=== PATIENT | female | born 1970 | race Caucasian/White ===

== ENCOUNTER 2017-07-09 08:42 | Emergency (ER) | payer OTHER ==
[2017-07-09 08:51] VITALS: TEMP 98; BMI 26.5
--- NOTE | 2017-07-09 09:09 | PDOC ---
History of Present Illness - General Chief Complaint: Headache Stated Complaint: HEADACHES Time Seen by Provider: 07/09/17 09:04 History Source: Patient, Family - History of Present Illness Initial Comments: 07/09/17 09:58 CC: 1 day h/o migraine Patient is a 47 y.o. female with a PMH of gastritis and migraines who presents to our ED this morning c/o a 1 day h/o migraine. Patient states she was @ home yesterday evening when she felt the nausea associated with her previous migraines and took a Fiorecet prophylatically, however it had little to no effect. Patient notes that she takes Fiorcet almost daily whenever she has a migraine and it usually effective. Patient notes one episode of brown (no delmis blood) emesis and some associated nausea, however denies any chest pain, shortness of breath or abdominal pain. PMD: Dr. Salazar Surgical: Cholecystectomy NKDA Social: (-) cigarettes, (-) alcohol, (-) marijuana/cocaine/heroin Past History - Past Medical History Allergies/Adverse Reactions: Allergies Allergy/AdvReac Type Severity Reaction Status Date / Time No Known Allergies Allergy Verified 07/09/17 08:48 Home Medications: Ambulatory Orders Butalb/Acetaminophen/Caffeine [Dzyzaw-Jdbfydgm-Oyhr 50-325-40] 1 each PO Q4H PRN 05/14/16 Omeprazole 20 mg PO DAILY 07/09/17 GI Disorders: Yes (ULCER) - Surgical History Cholecystectomy: Yes - Immunization History Immunization Up to Date: Yes - Suicide/Smoking/Psychosocial Hx Smoking History: Never smoked Hx Alcohol Use: No Drug/Substance Use Hx: No Substance Use Type: None Review of Systems - Review of Systems Constitutional: No: Chills, Fever HEENTM: Yes: Throat Swelling (Headache- throbbing pain in frontal and parietal ( B/L) ). No: Blurred Vision, Double Vision Respiratory: No: Shortness of Breath Cardiac (ROS): No: Chest Pain, Palpitations ABD/GI: Yes: Nausea, Vomiting. No: Constipated, Diarrhea : No: Burning, Dysuria Psychiatric: No: Anxiety, Depression All Other Systems: Reviewed and Negative *Physical Exam - Vital Signs Last Vital Signs Temp Pulse Resp BP Pulse Ox 98.0 F 92 H 18 131/72 98 07/09/17 08:49 07/09/17 08:49 07/09/17 08:49 07/09/17 08:49 07/09/17 08:49 - Physical Exam General Appearance: Yes: Nourished, Appropriately Dressed HEENT: positive: EOMI, HOLLY Neck: positive: Trachea midline, Supple Respiratory/Chest: positive: Lungs Clear, Normal Breath Sounds Cardiovascular: positive: Regular Rhythm, Regular Rate, S1, S2 Gastrointestinal/Abdominal: positive: Soft Musculoskeletal: positive: Other Extremity: positive: Normal Capillary Refill, Normal Inspection, Calf Tenderness (L sided calf-tenderness on repeat exam) ED Treatment Course - LABORATORY CBC & Chemistry Diagram: 07/09/17 09:21 07/09/17 09:21 Medical Decision Making - Medical Decision Making 07/09/17 10:14 Patient is a 47 y.o. female who presents with a 1 day h/o headache, consistent with her previous migraines, however increased in severity. Patient also displayed LLE calf tenderness on PE. PLAN: 1. Reglan + Toradol + Benadryl 2. CBC, CMP 3. B/L LE Doppler U/S 07/09/17 15:30 Doppler negative for clot, patient given second dose of Toradol and symptoms resolved. Patient discharged with referral to neurology. *DC/Admit/Observation/Transfer Diagnosis at time of Disposition: Migraine - Discharge Dispostion Disposition: HOME Admit: No - Referrals Referrals: Aki Mott DO [Staff Physician] - - Patient Instructions Printed Discharge Instructions: DI for Migraine Additional Instructions: Please call Dr. Mott for evaluation of your migraines. Please return to the Emergency Department should you experience an increase in the severity of your symptoms.
--- NOTE | 2017-07-09 09:16 | PDOC ---
Attending Attestation - HPI HPI: 07/09/17 09:41 Pt is a 47 yo F with a PMHx of headaches who presents to the ED with migraine. Patient describes globalized headache with no nausea, vomiting, light/sound sensitivity. Patient took Fioricet for the past 8 days however denies any relief. Patients headache still persists and presents to the ED for further evaluation. - Physicial Exam PE: 07/09/17 09:41 GENERAL: Awake, alert, and fully oriented, in no acute distress HEAD: No signs of trauma EYES: PERRLA, EOMI, sclera anicteric, conjunctiva clear ENT: Auricles normal inspection, hearing grossly normal, nares patent, oropharynx clear without exudates. Moist mucosa NECK: Normal ROM, supple, no lymphadenopathy, JVD, or masses LUNGS: Breath sounds equal, clear to auscultation bilaterally. No wheezes, and no crackles HEART: Regular rate and rhythm, normal S1 and S2, no murmurs, rubs or gallops ABDOMEN: Soft, nontender, normoactive bowel sounds. No guarding, no rebound. No masses EXTREMITIES: Normal range of motion, no edema. No clubbing or cyanosis. No cords, erythema, or tenderness NEUROLOGICAL: Cranial nerves II through XII grossly intact. Normal speech, normal gait SKIN: Warm, Dry, normal turgor, no rashes or lesions noted. - Medical Decision Making 07/09/17 09:41 Documentation prepared by Yennifer Keith, acting as biomedical equipment tech for Zeina Mcgraw DO <Yennifer Keith - Last Filed: 07/09/17 09:40> - Resident Resident Name: Venice Vasquez - ED Attending Attestation I have performed the following: I have examined & evaluated the patient, The case was reviewed & discussed with the resident, I agree w/resident's findings & plan, Exceptions are as noted - Medical Decision Making 07/09/17 09:16 I, Dr. Zeina Mcgraw DO, attest that this document has been prepared under my direction and personally reviewed by me in its entirety. I further attest, that it accurately reflects all work, treatment, procedures and medical decision -making performed by me. 07/09/17 10:19 a/p: 47yo female with a migraine campbell that has been gradually worsening over the last 3 days -hx of migraines, feels similar to prior -no head trauma -no meningeal signs -labs -pain control -reassess -L calf pain, will obtain doppler to r/o dvt <Zeina Mcgraw - Last Filed: 07/09/17 10:21>
[2017-07-09] MEDS ORDERED: KETOROLAC TROMETHAMINE 15 MG/ML VIAL IVPUSH ONE (09:28)
[2017-07-09] MEDS ORDERED: SODIUM CHLORIDE 0.9% 1000 ML INFUS.BAG IV ONE (09:29)
[2017-07-09] MEDS ORDERED: METOCLOPRAMIDE HCL INJECTION 10 MG/2 ML VIAL IVPB ONE (09:42)
[2017-07-09 09:45] LABS: BASOPHIL 0.2 % (0-2.0); EOSINOPHIL 0.2 % (0-4.5); MCH 29.3 pg (25.7-33.7); MEAN CELL VOLUME 88.8 fl (80-96); NEUTROPHILS 83.7 % (42.8-82.8); PLATELET COUNT 310 K/MM3 (134-434); WHITE BLOOD COUNT 7.8 K/mm3 (4.0-10.0)
[2017-07-09] MEDS ORDERED: METOCLOPRAMIDE HCL INJECTION 10 MG/2 ML VIAL ONE (09:45)
[2017-07-09] MEDS ORDERED: KETOROLAC TROMETHAMINE 15 MG/ML VIAL ONE ×2 (09:46→12:24)
[2017-07-09 10:17] LABS: ALBUMIN 3.7 g/dl (3.4-5.0); ANION GAP 9 (8-16); BILIRUBIN,TOTAL 0.3 mg/dL (0.2-1.0); CALCIUM 9.6 mg/dL (8.5-10.1); CO2 25 mmol/L (21-32); CREATININE 0.7 mg/dL (0.55-1.02); GLUCOSE,RANDOM 121 mg/dL (74-106); SGOT/AST 56 U/L (15-37); SGPT/ALT 81 U/L (12-78); TOT PROT 7.5 g/dl (6.4-8.2)
[2017-07-09 10:18] LABS: ALK PHOS 99 U/L (45-117)
[2017-07-09] MEDS ORDERED: ACETAMINOPHEN/CAFFEINE/BUTALBITAL 1 TAB PO ONE (11:23)
[2017-07-09] MEDS ORDERED: ACETAMINOPHEN/CAFFEINE/BUTALBITAL 1 TAB ONE (11:41)
[2017-07-09] MEDS ORDERED: DEXAMETHASONE SOD PHOSPHATE 4 MG/1 ML VIAL IVPUSH ONE (12:12)
[2017-07-09] MEDS ORDERED: DEXAMETHASONE SOD PHOSPHATE 10 MG/1 ML VIAL IVPUSH ONE (12:13)
[2017-07-09] MEDS ORDERED: KETOROLAC TROMETHAMINE 15 MG/ML VIAL IM ONE (12:14)
[2017-07-09] MEDS ORDERED: MAGNESIUM SULF 50% (8.12 MEQ/2 ML-1 GM VIAL) IVPB ONE (12:15)
[2017-07-09] MEDS ORDERED: ACETAMINOPHEN 500 MG TABLET (FP) PO ONE (12:15)
[2017-07-09 13:25] VITALS: BP 122/74; PULSE 79
== END 2017-07-09 13:25 | disposition home or self-care (01) ==
LOC: JER 08:42
PROC: 3E033GC Introduction of Other Therapeutic Substance into Peripheral Vein, Percutaneous Approach (ICD-10-PCS; principal; 2017-07-09)
PROC: 3E0333Z Introduction of Anti-inflammatory into Peripheral Vein, Percutaneous Approach (ICD-10-PCS; 2017-07-09)
PROC: 3E033GC Introduction of Other Therapeutic Substance into Peripheral Vein, Percutaneous Approach (ICD-10-PCS; 2017-07-09)
PROC: 3E0337Z Introduction of Electrolytic and Water Balance Substance into Peripheral Vein, Percutaneous Approach (ICD-10-PCS; 2017-07-09)
DX: G43.909 Migraine, unspecified, not intractable, without status migrainosus (principal); K29.70 Gastritis, unspecified, without bleeding
CPT/HCPCS: 36415; 80053; 85025; 93970-TC; 99282-25